=== PATIENT | male | born 1995 | race African-American/Black ===

== ENCOUNTER 2021-02-07 10:57 | Emergency (ER) | payer SELFPAY ==
[2021-02-07] MEDS ORDERED: cefTRIAXone\\ROCEPHIN 500 MG VIAL ONE (12:17)
[2021-02-07] MEDS ORDERED: Lidocaine 1% MPF 2 ML VIAL ONE (12:18)
[2021-02-07] MEDS ORDERED: Doxycycline 100 MG CAP PO SCH (12:30)
[2021-02-10 20:54] LABS: Chlam.trachomatis by PCR,Urine DETECTED (NotDetected)
== END 2021-02-07 12:40 | disposition home or self-care (01) ==
LOC: CSHERS 10:57
DX: N34.1 Nonspecific urethritis (principal); F17.210 Nicotine dependence, cigarettes, uncomplicated
CPT/HCPCS: 87491; 87591; 96372; 99283; J0696